=== PATIENT | female | born 1960 | race African-American/Black ===

== ENCOUNTER 2016-11-05 19:00 | Emergency (ER) | payer OTHER, MEDICAID ==
[2016-11-05] MEDS ORDERED: NS 1,000 ML IV ONE (19:09)
[2016-11-05 19:15] VITALS: RESP 16; TEMP 97.5
--- NOTE | 2016-11-05 19:16 | EDPHY ---
H & P Time Seen by Provider: 11/05/16 19:14 HPI/ROS: CHIEF COMPLAINT: Possible syncopal episode HISTORY OF PRESENT ILLNESS: 55-year-old female presents to the emergency department by ambulance after having an unwitnessed fall or possible syncopal episode. The patient states that she was in the kitchen and she bent down to pick something up and then apparently she woke up on the floor. She does not have any chest pain. She denies any difficulty breathing. She denies any presyncopal symptoms or feeling dizzy prior to her fall. She does not have a headache. She does not feel that she injured anything. Denies abdominal pain. Patient states "I am hungry can I have something to eat." Denies fevers. Denies any other reported trauma. REVIEW OF SYSTEMS: Constitutional: No fever, no chills. Eyes: No double or blurry vision. ENT: No sore throat. Respiratory: No cough, no shortness of breath. Cardiac: No chest pain. Gastrointestinal: No abdominal pain, vomiting or diarrhea. Genitourinary: No dysuria. Musculoskeletal: No neck or back pain. Skin: No rashes. Neurological: No headache. (Sheba Silveira) Past Medical/Surgical History: HTN, Bipolar (Jordana,Sheba Francis) Social History: [facility] (Sheba Silveira) Physical Exam: General Appearance: Alert, no distress. Eyes: Pupils equal and round. Extraocular motions are all intact. ENT: Mouth: Mucous membranes very dry. Respiratory: No wheezing, rhonchi, or rales, lungs are clear to auscultation. Cardiovascular: Regular rate and rhythm. Gastrointestinal: Abdomen is soft and nontender, no masses, no rebound or guarding, bowel sounds normal. Neurological: Alert and oriented x 3, cranial nerves II through XII grossly intact Skin: Warm and dry, no rashes. Musculoskeletal: Nontender to palpate along the cervical, thoracic or lumbar spine. Neck is supple. Extremities: Full range of motion and no peripheral edema. Psychiatric: Patient is oriented X 3, there is no agitation. (Sheba Silveira M) Constitutional: Initial Vital Signs Temperature (C) 36.4 C 11/05/16 19:13 Heart Rate 69 11/05/16 19:13 Respiratory Rate 16 11/05/16 19:13 Blood Pressure 160/114 H 11/05/16 19:13 O2 Sat (%) 93 11/05/16 19:13 O2 Delivery Mode Room Air Allergies/Adverse Reactions: acetaminophen [Acetaminophen] Allergy (Unknown, Verified 12/09/09 16:45) Unknown Antihistamines - Alkylamine Allergy (Unknown, Verified 12/09/09 16:45) Unknown Antihistamines - Ethanolamine Allergy (Unknown, Verified 12/09/09 16:46) Unknown Medical Decision Making - Diagnostics EKG Interpretation: EKG: Complete interpretation has been separately recorded in the [facility] archive. Summary impression: Left bundle branch block (Bill Vasquez) ED Course/Re-evaluation: 55-year-old female presents to the emergency department after having a possible syncopal episode. Patient has a known left bundle branch block which was confirmed in [facility] from visit 04/14. Laboratory studies including CBC and chemistries were normal. The patient is requesting something to eat. She is able to ambulate unassisted without difficulty. She will be discharged home. (Sheba Silveira) Differential Diagnosis: Syncope including but not limited to vasovagal syncope, arrhythmia, dehydration , and blood loss. (Sheba Silveira) Other Provider: I evaluated and participated in the management of the patient. I also evaluated the patient independently. My co-signature indicates that I have reviewed this chart and I agree with the findings and plan of care as documented. My personal H&P findings include: Patient presents to the ED after a syncopal episode. The patient is noted to have a left bundle branch block in the ED. Patient's laboratory studies are unremarkable. We reviewed her past medical records in the [facility] system and see the patient has a known history of a left bundle branch block documented in 2016. The patient will be discharged home with presumptive diagnosis of vasovagal episode. (Bill Vasquez) - Data Points Laboratory Results: Laboratory Results 11/05/16 17:25 11/05/16 17:25 11/05/16 11/05/16 17:25 17:25 WBC 5.00 10^3/uL 10^3/uL (3.80-9.50) RBC 4.15 10^6/uL L 10^6/uL (4.18-5.33) Hgb 13.5 g/dL g/dL (12.6-16.3) Hct 39.8 % % (38.0-47.0) MCV 95.9 fL fL (81.5-99.8) MCH 32.5 pg pg (27.9-34.1) MCHC 33.9 g/dL g/dL (32.4-36.7) RDW 12.7 % % (11.5-15.2) Plt Count 293 10^3/uL 10^3/uL (150-400) MPV 9.7 fL fL (8.7-11.7) Neut % (Auto) 47.2 % % (39.3-74.2) Lymph % (Auto) 40.8 % % (15.0-45.0) [place] % (Auto) 10.0 % % (4.5-13.0) Eos % (Auto) 1.6 % % (0.6-7.6) Baso % (Auto) 0.2 % L % (0.3-1.7) Nucleat RBC Rel Count 0.0 % % (0.0-0.2) Absolute Neuts (auto) 2.36 10^3/uL 10^3/uL (1.70-6.50) Absolute Lymphs (auto) 2.04 10^3/uL 10^3/uL (1.00-3.00) Absolute Monos (auto) 0.50 10^3/uL 10^3/uL (0.30-0.80) Absolute Eos (auto) 0.08 10^3/uL 10^3/uL (0.03-0.40) Absolute Basos (auto) 0.01 10^3/uL L 10^3/uL (0.02-0.10) Absolute Nucleated RBC 0.00 10^3/uL 10^3/uL (0-0.01) Immature Gran % 0.2 % % (0.0-1.1) Immature Gran # 0.01 10^3/uL 10^3/uL (0.00-0.10) Sodium 142 mEq/L mEq/L (134-144) Potassium 3.5 mEq/L mEq/L (3.5-5.2) Chloride 107 mEq/L mEq/L (97-110) Carbon Dioxide 25 mEq/l mEq/l (22-31) Anion Gap 10 mEq/L mEq/L (8-16) BUN 16 mg/dL mg/dL (7-23) Creatinine 1.1 mg/dL H mg/dL (0.6-1.0) Estimated GFR 51 Glucose 79 mg/dL mg/dL (70-100) Calcium 10.6 mg/dL H mg/dL (8.5-10.4) Medications Given: Discontinued Medications Sodium Chloride (Ns) 1,000 mls @ 0 mls/hr IV ONCE ONE PRN Reason: Wide Open Stop: 11/05/16 19:10 Last Admin: 11/05/16 19:15 Dose: 1,000 mls Departure - Departure Disposition: Home, Routine, Self-Care Clinical Impression: Syncope Qualifiers: Syncope type: unspecified Qualified Code(s): R55 - Syncope and collapse Condition: Good Instructions: Syncope (ED) Additional Instructions: Continue medications as prescribed. Return to the emergency department if you have any recurring passing out or syncopal episodes. Medically cleared for prison. Referrals: [facility],. [Clinic] - 1-2 days without fail
--- NOTE | 2016-11-05 19:19 | CPEKG ---
Heart Rate: 70 RR Interval: 857 P-R Interval: 188 QRSD Interval: 174 QT Interval: 496 QTC Interval: 536 P [place]: 24 QRS [place]: -60 T Wave [place]: 100 EKG Severity - ABNORMAL ECG - EKG Impression: SINUS RHYTHM EKG Impression: LEFT BUNDLE BRANCH BLOCK Electronically Signed By: Bill Vasquez 05-Nov-2016 19:54:15
[2016-11-05 19:35] LABS: % IMMATURE GRANULYOCYTES 0.2 % (0.0-1.1); ABSOLUTE IMMATURE GRANULOCYTES 0.01 10^3/uL (0.00-0.10); ADD DIFF? NO; ADD MORPH? NO; ADD SCAN? NO; ATYPICAL LYMPHOCYTE FLAG 0 (0-99); FRAGMENT RBC FLAG 0 (0-99); HEMATOCRIT 39.8 % (38.0-47.0); HEMOGLOBIN 13.5 g/dL (12.6-16.3); LEFT SHIFT FLG 0 (0-99); LIPEMIA HEMOLYSIS FLAG 90 (0-99); MEAN CELL HEMOGLOBIN 32.5 pg (27.9-34.1); MEAN CELL HEMOGLOBIN CONCENTR. 33.9 g/dL (32.4-36.7); MEAN CELL VOLUME 95.9 fL (81.5-99.8); MEAN PLATELET VOLUME 9.7 fL (8.7-11.7); PLATELET CLUMPS FLAG 10 (0-99); PLATELET COUNT 293 10^3/uL (150-400); RED BLOOD CELL COUNT 4.15 10^6/uL (4.18-5.33); RED CELL DISTRIBUTION WIDTH 12.7 % (11.5-15.2)
[2016-11-05 19:53] LABS: ANION GAP 10 mEq/L (8-16); CALCIUM 10.6 mg/dL (8.5-10.4); CARBON DIOXIDE 25 mEq/l (22-31); CHLORIDE 107 mEq/L (97-110); CREATININE 1.1 mg/dL (0.6-1.0); GLOMERULAR FILTRATION RATE 51; GLUCOSE 79 mg/dL (70-100); POTASSIUM 3.5 mEq/L (3.5-5.2); SODIUM 142 mEq/L (134-144)
[2016-11-05 20:16] VITALS: BP 147/87; PULSE 93; O2SAT 93
== END 2016-11-05 20:27 | disposition home or self-care (01) ==
LOC: EDSEX → EDAGE → EDUNIT# → EDBD 19:00
DX: R55 Syncope and collapse (principal); I10 Essential (primary) hypertension